=== PATIENT | female | born 1980 | race Caucasian/White ===

== ENCOUNTER 2017-02-17 20:19 | Emergency (ER) | payer SELFPAY ==
[2017-02-17 20:37] VITALS: RESP 16; TEMP 98.2
[2017-02-17 21:36] LABS: BASO % 0.6 % (0.0-2.0); EOS # 0.1 K/uL (0.0-0.7); HEMATOCRIT 40.7 % (34.0-47.0); LYMPH # 2.2 K/uL (1.0-4.3); LYMPH % 35.3 % (20.0-40.0); MEAN CELL VOLUME 82.9 fl (81.0-99.0); MEAN CORPUSCULAR HEMOGLOBIN 27.8 pg (27.0-31.0); MEAN CORPUSCULAR HGB CONC 33.6 g/dL (33.0-37.0); MEAN PLATELET VOLUME 10.4 fl (7.2-11.7); MONO # 0.5 K/uL (0.0-0.8); MONO % 7.9 % (0.0-10.0); NEUT # 3.5 K/uL (1.8-7.0); NEUT % 55.2 % (50.0-75.0); NRBC % 0.1 % (0.0-0.0); RED CELL DISTRIBUTION WIDTH 15.3 % (11.5-14.5); WHITE BLOOD COUNT 6.4 K/uL (4.8-10.8)
[2017-02-17 21:37] LABS: RBC URINE 1 /hpf (0-3); URINE BACTERIA RARE (<OCC); URINE BILIRUBIN NEGATIVE (NEGATIVE); URINE BLOOD NEGATIVE (NEGATIVE); URINE COLOR YELLOW (YELLOW); URINE GLUCOSE (UA) >=500 mg/dL (Normal); URINE KETONE TRACE mg/dL (NEGATIVE); URINE LEUKOCYTE ESTERASE NEG Leu/uL (Negative); URINE PROTEIN NEGATIVE (NEGATIVE); URINE UROBILINOGEN 0.2-1.0 mg/dL (0.2-1.0); WBC URINE 2 /hpf (0-5)
[2017-02-17 21:49] LABS: BLOOD UREA NITROGEN 17 mg/dl (7-17); CALCIUM 9.2 mg/dL (8.4-10.2); CARBON DIOXIDE 27 mmol/L (22-30); CHLORIDE 100 mmol/L (98-107); GFR AFRICAN-AMERICAN > 60; GLUCOSE,RANDOM 255 mg/dL (65-105); POTASSIUM 4.1 MMOL/L (3.6-5.0); SODIUM 141 mmol/l (132-148)
--- NOTE | 2017-02-17 22:08 | ED PDOC ---
HPI: Female Pain Time Seen by Provider: 02/17/17 20:56 Chief Complaint (Nursing): Female Genitourinary Chief Complaint (Provider): Suprapubic Abdominal Pain History Per: Patient History/Exam Limitations: no limitations Onset/Duration Of Symptoms: Days (x1 week) Current Symptoms Are (Timing): Still Present Severity: Moderate Associated Symptoms: Other (foul smelling brown vaginal discharge). denies: Fever, Chills Additional Complaint(s): Vera Zuleta is a 36 year old female, with a past medical history inclusive of NIDDM, who presents to the ED on 02/17/17 for the evaluation of moderate, suprapubic abdominal pain that she has experienced x1 week. Associated foul smelling brown vaginal discharge also reported, though patient denies fever/ chills. Patient reports that she is currently sexually active with 1 partner and has no concern for STD's. (+) IUD placement x5 years without previous issue. PMD: [facility] Past Medical History Reviewed: Historical Data, Nursing Documentation, Vital Signs Vital Signs: Last Vital Signs Temp 98.2 F 02/17/17 20:35 Pulse 83 02/17/17 20:35 Resp 16 02/17/17 20:35 BP 134/88 02/17/17 20:35 Pulse Ox 99 02/17/17 20:35 - Medical History PMH: No Chronic Diseases - Surgical History Surgical History: Appendectomy - Family History Family History: States: Unknown Family Hx - Living Arrangements Living Arrangements: With Family - Social History Current smoker - smoking cessation education provided: No Alcohol: None Drugs: Denies - Home Medications Home Medications: Ambulatory Orders Medication Instructions Recorded metFORMIN [glucOPHAGE] 850 mg PO BID 02/17/17 metroNIDAZOLE [Flagyl] 500 mg PO BID 14 Days 02/18/17 - Allergies Allergies/Adverse Reactions: Allergies Allergy/AdvReac Type Severity Reaction Status Date / Time No Known Allergies Allergy Verified 02/17/17 20:35 Review of Systems ROS Statement: Except As Marked, All Systems Reviewed And Found Negative Constitutional: Negative for: Fever, Chills Gastrointestinal: Positive for: Abdominal Pain (suprapubic) Genitourinary Female: Positive for: Vaginal Discharge (foul smelling, brown) Physical Exam - Reviewed Nursing Documentation Reviewed: Yes Vital Signs Reviewed: Yes - Physical Exam Appears: Positive for: Non-toxic, No Acute Distress Head Exam: Positive for: ATRAUMATIC, NORMOCEPHALIC Skin: Positive for: Normal Color, Warm, Dry Cardiovascular/Chest: Positive for: Regular Rate, Rhythm. Negative for: Murmur Respiratory: Positive for: Normal Breath Sounds. Negative for: Respiratory Distress Gastrointestinal/Abdominal: Positive for: Soft, Tenderness (b/l lower abdomen) Pelvic Exam: Positive for: No Cerv. Motion Tender, Discharge (brown, mucoid), Tender Adnexa (b/l), Other (Examination chaperoned by Donna Carpio RN, IUD string visualized normally coming out of cervix) Back: Positive for: Normal Inspection Neurologic/Psych: Positive for: Alert, Oriented - Laboratory Results Result Diagrams: 02/17/17 21:25 02/17/17 21:25 - ECG O2 Sat by Pulse Oximetry: 99 (RA) Pulse Ox Interpretation: Normal Medical Decision Making Medical Decision Makin:56 Initial Impression: bacterial vaginosis vs ovarian torsion (unlikely) Initial Plan: * Pelvis/Transvaginal US * Labs * Urinalysis * Urine Culture * Chlamydia/GC RNA * Genital Culture * Motrin 600mg PO * Reevaluation Scribe Attestation: Documented by Janette Curtis, acting as a scribe for Wale Arguello MD. Provider Scribe Attestation: All medical record entries made by the Scribe were at my direction and personally dictated by me. I have reviewed the chart and agree that the record accurately reflects my personal performance of the history, physical exam, medical decision making, and the department course for this patient. I have also personally directed, reviewed, and agree with the discharge instructions and disposition. Disposition - Clinical Impression Clinical Impression: Bacterial vaginosis - Disposition [facility] Disposition Time: 01:00 Condition: STABLE Prescriptions: metroNIDAZOLE [Flagyl] 500 mg PO BID 14 Days Instructions: Bacterial Vaginosis (ED)
--- NOTE | 2017-02-18 00:20 | US ---
EXAM: US Pelvis Complete, Transabdominal. CLINICAL HISTORY: 36 years old, female; Pain; Pelvic pain; Additional info: Lower abd pain, iud, vd TECHNIQUE: Real-time transabdominal pelvic ultrasound (complete) with image documentation. EXAM DATE/TIME: 02/17/2017 9:16 PM COMPARISON: There are no prior studies for comparison. FINDINGS: Uterus: Uterus measures approximately 9 x 4.6 x 5.4 cm. There is an intrauterine device in the midportion of the uterus. Endometrium is not well visualized. Endometrium measures approximately 4 mm in width.. Right ovary: Right ovary measures approximately 3.6 x 2 x 1.7 cm. There are multiple small follicles. Flow Left ovary: Left ovary measures approximately 2.7 x 1.4 x 1.6 cm.There is expected blood flow on Doppler imaging Bladder: Bladder is incompletely distended Fluid: There is no free fluid. IMPRESSION: Normal pelvic ultrasound with IUD in place
[2017-02-18 01:41] VITALS: BP 116/62; PULSE 72
[2017-02-18 15:54] VITALS: O2SAT 99
== END 2017-02-18 01:41 | disposition home or self-care (01) ==
LOC: H.ER 20:19
DX: N76.0 Acute vaginitis (principal); E11.9 Type 2 diabetes mellitus without complications; Z79.84 Long term (current) use of oral hypoglycemic drugs

== ENCOUNTER 2018-09-08 01:35 | Emergency (ER) | payer SELFPAY ==
[2018-09-08 01:35] VITALS: BMI 22.6
[2018-09-08 02:38] VITALS: BP 103/67; PULSE 65; RESP 14; TEMP 98.1; O2SAT 99
--- NOTE | 2018-09-08 03:38 | ED PDOC ---
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 She describes the pain as a burning sensation and rates it a 5/10. Patient states it sometimes radiates down to umbilicus. She took Advil at 23:30 with minimal relief. She denies any associated with fever, chills, nausea, vomit, diarrhea, urinary symptoms, cough, congestion, shortness of breath, flank pain, vaginal bleeding or discharge, history of UTI or kidney stones. No further medical complaints. Of note, patient states she forgot to take her Metformin dose yesterday. LMP 08/07/18. PMD: [facility]. Past Medical History Reviewed: Historical Data, Nursing Documentation, Vital Signs Vital Signs: Last Vital Signs Temp 98.1 F 09/08/18 02:36 Pulse 65 09/08/18 02:36 Resp 14 09/08/18 02:36 BP 103/67 09/08/18 02:36 Pulse Ox 99 09/08/18 02:36 - Medical History PMH: Asthma, Diabetes (NIDDM) Denies: HIV, Chronic Kidney Disease - Surgical History Surgical History: Appendectomy - Family History Family History: States: Unknown Family Hx, Diabetes - Social History Current smoker - smoking cessation education provided: No Alcohol: None Drugs: Denies - Immunization History Hx Influenza Vaccination: No - Home Medications Home Medications: Ambulatory Orders Medication Instructions Recorded Ibuprofen [Motrin] 600 mg PO Q6 #20 tab 11/11/17 MetFORMIN [glucoPHAGE] 800 mg PO BID 11/11/17 Ciprofloxacin [Cipro] 500 mg PO BID #6 tab 11/12/17 Metronidazole [Flagyl] 500 mg PO BID #14 tab 11/12/17 Bacitracin OINT 1 applic TOP BID PRN #1 tube 07/11/18 Famotidine [Pepcid] 40 mg PO DAILY #10 tablet 09/08/18 Mag Hydrox/Aluminum Hyd/Simeth 15 ml PO QID PRN #300 ml 09/08/18 [Maalox Advanced Suspension] - Allergies Allergies/Adverse Reactions: Allergies Allergy/AdvReac Type Severity Reaction Status Date / Time No Known Allergies Allergy Verified 09/08/18 02:35 Review of Systems ROS Statement: Except As Marked, All Systems Reviewed And Found Negative Constitutional: Negative for: Fever, Chills ENT: Negative for: Nose Congestion Respiratory: Negative for: Cough, Shortness of Breath Gastrointestinal: Positive for: Abdominal Pain (epigastric burning). Negative for: Nausea, Vomiting, Diarrhea Genitourinary Female: Negative for: Dysuria, Frequency, Vaginal Discharge, Vaginal Bleeding Musculoskeletal: Negative for: Back Pain (flank pain) Physical Exam - Reviewed Nursing Documentation Reviewed: Yes Vital Signs Reviewed: Yes - Physical Exam Comments: GENERAL APPEARANCE: Patient is awake, alert, oriented x 3, in no acute distress. resting comfortably SKIN: Warm, dry; (-) cyanosis. EYES: (-) conjunctival pallor, (-) scleral icterus. ENMT: Mucous membranes moist. NECK: (-) tenderness, (-) stiffness, (-) lymphadenopathy. CHEST AND RESPIRATORY: (-) rales, (-) rhonchi, (-) wheezes; breath sounds equal bilaterally. HEART AND CARDIOVASCULAR: (-) irregularity; (-) murmur, (-) gallop. ABDOMEN AND GI: (-) distention. Bowel sounds active; [+] minimal epigastric tenderness. (-) guarding, (-) rebound, (-) palpable masses, (-) CVA tenderness. EXTREMITIES: (-) deformity, (-) edema, (+) distal pulses. NEURO AND PSYCH: Mental status as above; (-) focal findings. - Laboratory Results Result Diagrams: 09/08/18 03:55 09/08/18 03:55 Urine POC: Negative Urine dip results: Positive for: Ketones (40), Glucose (>1000). Negative for: Leukocyte Esterase, Blood, Nitrate, Bilirubin, Protein - ECG O2 Sat by Pulse Oximetry: 99 (RA) Pulse Ox Interpretation: Normal Medical Decision Making Medical Decision Making: Time: 03:22 Initial Impression: abdominal pain Initial Plan: --CMP --Lipase --CBC w/ differential --HumunLIN R 4 units --Maalox Plus 30 ml PO --Sodium Chloride 1,000 ml IV 999 mls/hr --Protonix Inj 40 mg IVP --Urinalysis --Reevaluation 0335 Accucheck: 225 Udip reviewed. Upreg negative. 0430 Labs reviewed. CBC unremarkable. CMP significant for hyperglycemia. 0505 Repeat Accucheck: 168 0515 On re-evaluation, patient reports improvement of symptoms. On exam, patient remains AAOx3, in no acute distress. Lungs clear to auscultation, cardiac RRR, abdomen soft, non-tender, repeat neuro exam shows no focal findings. VSS, stable for discharge. Lab/Diagnostic results d/w the patient in great detail. Diagnosis of abdominal pain, hyperglycemia d/w the patient. Based on history, exam and diagnostic results, plan will be for outpatient follow up. Patient instructed to follow-up with pmd / referral provided / the clinic in 1- 2 days without fail. Advised to take medication as prescribed. Return to the emergency room at any time for any new or worsening symptoms. Patient states she fully agrees with and understands discharge instructions. States that she agrees with the plan and disposition. Verbalized and repeated discharge instructions and plan. I have given the patient opportunity to ask any additional questions. Scribe Attestation: Documented by Zeb Little, acting as a scribe for Catina Contreras PA-C. Provider Scribe Attestation: All medical record entries made by the Scribe were at my direction and person ally dictated by me. I have reviewed the chart and agree that the record accurately reflects my personal performance of the history, physical exam, medical decision making, and the department course for this patient. I have also personally directed, reviewed, and agree with the discharge instructions and disposition. Disposition - Clinical Impression Clinical Impression: Hyperglycemia, Abdominal pain in female - Patient ED Disposition Is Patient to be Admitted: No Counseled Patient/Family Regarding: Studies Performed, Diagnosis, Need For Followup, Rx Given - Disposition Referrals: [facility] [Outside] Disposition: Routine/Home Disposition Time: 05:15 Condition: STABLE Additional Instructions: La atencin mdica de emergencia que recibi hoy se dirigi hacia los sntomas agudos de presentacin. Si le recetaron algn medicamento, llnelo y adminstrelo segn las indicaciones. Los sntomas pueden tardar varios cameron en resolverse. Regrese al Departamento de Emergencias en cualquier momento si los sntomas empeoran, no mejoran o si surgen otros problemas. Comunquese con dee mdico dentro de 2 cameron para angelina nueva evaluacin y eric un seguimiento o llame a dejan de los mdicos / clnicas a los que powers sido referido y que figuran en el formulario de Informacin de visita al paciente que se incluye en dee paquete de yane. Lleve todos los documentos que le entregaron al momento del yane junto con cualquier medicamento a dee visita de seguimiento. Nuestro tratamiento no puede reemplazar la atencin mdica continua por parte de un proveedor de atencin primaria (PCP) fuera del departamento de emergencias. Prescriptions: Famotidine [Pepcid] 40 mg PO DAILY #10 tablet Mag Hydrox/Aluminum Hyd/Simeth [Maalox Advanced Suspension] 15 ml PO QID PRN #300 ml PRN Reason: Dyspepsia Instructions: Hyperglycemia, Adult, Acute Abdomen (Belly Pain), Adult (DC), The ABCs of Diabetes, Diabetes and Diet Forms: [employer] (Sinhala) Print Language: ARGENTINE - POA Present On Arrival: Poor Glycemic Control Results - Lab Results Lab Results: 09/08/18 09/08/18 09/08/18 03:55 03:55 03:55 WBC 6.8 RBC 4.92 Hgb 14.0 Hct 41.1 MCV 83.5 MCH 28.4 MCHC 34.0 RDW 15.6 H Plt Count 184 MPV 9.9 Neut % (Auto) 53.5 Lymph % (Auto) 35.4 [place] % (Auto) 9.4 Eos % (Auto) 1.1 Baso % (Auto) 0.6 Neut # (Auto) 3.6 Lymph # (Auto) 2.4 [place] # (Auto) 0.6 Eos # (Auto) 0.1 Baso # (Auto) 0.0 Sodium 137 Potassium 4.2 Chloride 103 Carbon Dioxide 27 Anion Gap 11 BUN 19 H Creatinine 0.5 L Est GFR ( Amer) > 60 Est GFR (Non-Af Amer) > 60 POC Glucose (mg/dL) Random Glucose 241 H Calcium 9.2 Total Bilirubin 0.2 AST 28 ALT 33 Alkaline Phosphatase 134 H Total Protein 7.9 Albumin 4.3 Globulin 3.6 Albumin/Globulin Ratio 1.2 Lipase 179 Urine Color Straw Urine Clarity Slighty-cloudy Urine pH 6.0 Ur Specific [place] 1.024 Urine Protein Negative Urine Glucose (UA) >=500 Urine Ketones 20 Urine Blood Negative Urine Nitrate Negative Urine Bilirubin Negative Urine Urobilinogen 0.2-1.0 Ur Leukocyte Esterase Neg Urine RBC (Auto) 2 Urine Microscopic WBC 5 Ur Squamous Epith Cells 2 Urine Bacteria Rare 09/08/18 03:36 WBC RBC Hgb Hct MCV MCH MCHC RDW Plt Count MPV Neut % (Auto) Lymph % (Auto) [place] % (Auto) Eos % (Auto) Baso % (Auto) Neut # (Auto) Lymph # (Auto) [place] # (Auto) Eos # (Auto) Baso # (Auto) Sodium Potassium Chloride Carbon Dioxide Anion Gap BUN Creatinine Est GFR ( Amer) Est GFR (Non-Af Amer) POC Glucose (mg/dL) 225 H Random Glucose Calcium Total Bilirubin AST ALT Alkaline Phosphatase Total Protein Albumin Globulin Albumin/Globulin Ratio Lipase Urine Color Urine Clarity Urine pH Ur Specific [place] Urine Protein Urine Glucose (UA) Urine Ketones Urine Blood Urine Nitrate Urine Bilirubin Urine Urobilinogen Ur Leukocyte Esterase Urine RBC (Auto) Urine Microscopic WBC Ur Squamous Epith Cells Urine Bacteria
[2018-09-08] MEDS ORDERED: Sodium Chloride 0.9% 1,000 ML IV STA (03:39)
[2018-09-08] MEDS ORDERED: Alum-Mag Hydrox-Simethicone Susp (30 mL) PO STA (03:39)
[2018-09-08] MEDS ORDERED: Insulin Regular 100 units/ml IVP STA (03:40)
[2018-09-08] MEDS ORDERED: Alum-Mag Hydrox-Simethicone Susp (30 mL) ONE (03:49)
[2018-09-08] MEDS ORDERED: Insulin Regular 100 units/ml ONE (03:49)
[2018-09-08 04:14] LABS: BASO % 0.6 % (0.0-2.0); EOS # 0.1 K/uL (0.0-0.7); EOS % 1.1 % (0.0-4.0); LYMPH # 2.4 K/uL (1.0-4.3); LYMPH % 35.4 % (20.0-40.0); MEAN CELL VOLUME 83.5 fl (81.0-99.0); MEAN CORPUSCULAR HEMOGLOBIN 28.4 pg (27.0-31.0); MEAN PLATELET VOLUME 9.9 fl (7.2-11.7); MONO # 0.6 K/uL (0.0-0.8); MONO % 9.4 % (0.0-10.0); NEUT # 3.6 K/uL (1.8-7.0); NEUT % 53.5 % (50.0-75.0); NRBC % 0.4 % (0.0-0.0); RBC 4.92 Mil/uL (3.80-5.20); RED CELL DISTRIBUTION WIDTH 15.6 % (11.5-14.5); WHITE BLOOD COUNT 6.8 K/uL (4.8-10.8)
[2018-09-08 04:21] LABS: SQUAMOUS EPITHIAL 2 /hpf (0-5); URINE BACTERIA RARE (<OCC); URINE BILIRUBIN NEGATIVE (NEGATIVE); URINE BLOOD NEGATIVE (NEGATIVE); URINE CLARITY SLIGHTY-CLOUDY (Clear); URINE COLOR STRAW (YELLOW); URINE GLUCOSE (UA) >=500 mg/dL (Normal); URINE LEUKOCYTE ESTERASE NEG Leu/uL (Negative); URINE PROTEIN NEGATIVE (NEGATIVE); URINE UROBILINOGEN 0.2-1.0 mg/dL (0.2-1.0)
[2018-09-08 04:23] LABS: ALB/GLOB RATIO 1.2 (1.0-2.1); ALBUMIN 4.3 g/dL (3.5-5.0); ALT/SGPT 33 U/L (9-52); AST/SGOT 28 U/L (14-36); BLOOD UREA NITROGEN 19 mg/dl (7-17); CALCIUM 9.2 mg/dL (8.4-10.2); GFR NON-AFRICAN AMERICAN > 60; LIPASE 179 U/L (23-300)
== END 2018-09-08 05:35 | disposition home or self-care (01) ==
LOC: H.ER 01:35 → MERGE 01:35 → H.ER 05:35
DX: E11.65 Type 2 diabetes mellitus with hyperglycemia (principal); Z79.84 Long term (current) use of oral hypoglycemic drugs; R10.9 Unspecified abdominal pain
CPT/HCPCS: 80053; 81003; 81025; 82948; 83690; 85025; 96361; 96374; 96375; 99283; C9113; J7030

== ENCOUNTER 2019-01-06 10:51 | Emergency (ER) | payer SELFPAY ==
[2019-01-06 10:52] VITALS: BMI 22.6
--- NOTE | 2019-01-06 12:24 | ED PDOC ---
HPI: Influenza Time Seen by Provider: 01/06/19 11:24 Chief Complaint: Flu-like Symptoms Chief Complaint (Provider): body aches, chills History Per: Patient Additional complaint(s):: 38 y/o F with hx of DM who presents with chills and body aches x 2 days with nausea and abdominal pain x 1 week. Pt states that she developed LUQ abdominal pain with radiation to Left flank approximately 1 week ago and then develop chills and body aches as well subjective fever last night for which she took Ibuprofen last night. She has not taken anything today. She has also been having some chest pressure, especially with deep inspiration that has been constant since yesterday evening around 7pm. + nausea and non-productive cough x several days, no vomiting or diarrhea. Denies dysuria, frequency, vaginal discharge. Past Medical History Reviewed: Historical Data, Nursing Documentation, Vital Signs Vital Signs: Last Vital Signs Temp 103.3 F H 01/06/19 12:16 Pulse 108 H 01/06/19 10:58 Resp 18 01/06/19 10:58 BP 130/82 01/06/19 10:58 Pulse Ox 100 01/06/19 10:58 - Medical History PMH: Asthma, Diabetes (NIDDM) Denies: HIV, Chronic Kidney Disease - Surgical History Surgical History: Appendectomy - Family History Family History: States: Unknown Family Hx, Diabetes - Immunization History Hx Influenza Vaccination: No - Home Medications Home Medications: Ambulatory Orders Medication Instructions Recorded metFORMIN [glucOPHAGE] 850 mg PO BID 02/17/17 metroNIDAZOLE [Flagyl] 500 mg PO BID 14 Days tab 02/18/17 Ibuprofen [Motrin] 600 mg PO Q6 #20 tab 11/11/17 MetFORMIN [glucoPHAGE] 800 mg PO BID 11/11/17 Ciprofloxacin [Cipro] 500 mg PO BID #6 tab 11/12/17 Metronidazole [Flagyl] 500 mg PO BID #14 tab 11/12/17 Bacitracin OINT 1 applic TOP BID PRN #1 tube 07/11/18 Famotidine [Pepcid] 40 mg PO DAILY #10 tablet 09/08/18 Mag Hydrox/Aluminum Hyd/Simeth 15 ml PO QID PRN #300 ml 09/08/18 [Maalox Advanced Suspension] Cephalexin [Keflex] 500 mg PO QID 12 Days cap 01/06/19 Ibuprofen [Motrin Tab] 600 mg PO Q6 PRN 7 Days tab 01/06/19 - Allergies Allergies/Adverse Reactions: Allergies Allergy/AdvReac Type Severity Reaction Status Date / Time No Known Allergies Allergy Verified 09/11/18 07:59 Review of Systems Constitutional: Positive for: Fever, Chills, Sweats, Malaise Cardiovascular: Positive for: Chest Pain. Negative for: Palpitations Respiratory: Positive for: Cough Physical Exam - Reviewed Nursing Documentation Reviewed: Yes Vital Signs Reviewed: Yes - Physical Exam Appears: Positive for: Uncomfortable Head Exam: Positive for: ATRAUMATIC Neck: Positive for: Normal Cardiovascular/Chest: Positive for: Tachycardia Respiratory: Positive for: Normal Breath Sounds Gastrointestinal/Abdominal: Positive for: Tenderness (LUQ and LLQ tenderness on palpation), Guarding (+). Negative for: Mass, Distended, Rebound Back: Negative for: L CVA Tenderness, R CVA Tenderness Lymphatic: Positive for: Normal Exam Neurologic/Psych: Positive for: Alert, Oriented Medical Decision Making Medical Decision Making: CBC, CMP, lipase U/A, Urine , Urine culture Zofran 4mg IV x 1 EKG CXR PA and lateral Urine dip shows: Large Nitrate and LE as well as blood. Urine preg: negative EKG: sinus, HR 104, no ischemic change. Repeat temp: T: 103.3F VBG lactate, blood cultures ordered x 2 NS 1L IV x 1 Tylenol 975mg PO x 1 CT abd/pelvis w/o contrast CT abd/pelvis: FINDINGS: LOWER THORAX: Small calcified granuloma noted right middle lobe. LIVER: Unremarkable. No gross lesion or ductal dilatation. GALLBLADDER AND BILE DUCTS: Sludge is questioned within the gallbladder lumen without defined cholelithiasis appreciated at this time. Gallbladder is mildly distended and otherwise unremarkable appearing. PANCREAS: Unremarkable. No gross lesion or ductal dilatation. SPLEEN: Unremarkable. ADRENALS: Unremarkable. No mass. KIDNEYS AND URETERS: No radiodense urolithiasis, perinephric fluid collection or obstructive uropathy is appreciate bilaterally. The bilateral ureters appear normal caliber overall. No definite perinephric reaction or fluid collection appreciated bilaterally. VASCULATURE: Unremarkable. No aortic aneurysm. No aortic atherosclerotic calcification or mural plaque present. BOWEL: Stomach is collapsed not well evaluated. Surgical clips are seen at the cecal base an other areas of the right lower quadrant suggesting prior appendectomy. Clinically correlate further. No bowel obstruction appreciable. Evaluation of the gastrointestinal tract is limited due to the lack of oral contrast administration. Moderate amount retained fecal material scattered throughout the proximal and mid large-bowel and mildly at the distal large bowel. APPENDIX: Apparently surgically absent. Clinically correlate. PERITONEUM: Unremarkable. No free fluid. No free air. LYMPH NODES: Unremarkable. No enlarged lymph nodes. BLADDER: Distended but thin and smooth walled. No radiodense urolithiasis the lumen. REPRODUCTIVE: Unremarkable. BONES: No acute fracture. OTHER FINDINGS: None. IMPRESSION: 1. No radiodense urolithiasis, perinephric fluid collection or obstructive uropathy is appreciate bilaterally. The bilateral ureters appear normal caliber overall. No significant perinephric reaction bilaterally. Follow-up contrast CT may be helpful if further clinical concern remains for pyelonephritis. 2. Prior appendectomy suggested. Clinically correlate further. CXR: FINDINGS: LINES AND TUBES: None. LUNG AND PLEURA: The lungs are well inflated and clear. No pleural effusion or pneumothorax. HEART AND MEDIASTINUM: The heart is not enlarged. No aortic atherosclerotic calcifications present. The hilar and mediastinal contours are within normal limits. SKELETAL STRUCTURES: The bony structures are within normal limits for the patient's age. VISUALIZED UPPER ABDOMEN: Normal. OTHER FINDINGS: None. IMPRESSION: No active pulmonary disease. 16:30: pt re-evaluated, states that she is feeling somewhat better. Pt informed of CT scan results and diagnosis of Pyelonephritis. Return instructions given. Stable for D/c home. 3. Questionable sludge in gallbladder. No radiodense cholelithiasis or other significant gallbladder findings. - Laboratory Results Result Diagrams: 01/06/19 12:10 01/06/19 12:10 - ECG O2 Sat by Pulse Oximetry: 100 Disposition - Clinical Impression Clinical Impression: Pyelonephritis - Patient ED Disposition Is Patient to be Admitted: No Counseled Patient/Family Regarding: Studies Performed, Diagnosis, Need For Followup, Rx Given - Disposition Referrals: [facility] [Outside] Disposition: Routine/Home Disposition Time: 17:10 Condition: STABLE Additional Instructions: Return to ER if your fever persists despite being on antibiotics for 48hrs or you feel too weak to take care of yourself. Take full course of antibiotics as presribed. Prescriptions: Cephalexin [Keflex] 500 mg PO QID 12 Days cap Ibuprofen [Motrin Tab] 600 mg PO Q6 PRN 7 Days tab PRN Reason: Fever >100.4 F Instructions: Kidney Infection (DC) Forms: [employer] (German), [facility] School/Work Excuse Print Language: SPANISH
[2019-01-06 12:26] LABS: BASO % 0.2 % (0.0-2.0); HEMOGLOBIN 13.8 g/dL (12.0-16.0); LYMPH # 0.3 K/uL (1.0-4.3); LYMPH % 3.9 % (20.0-40.0); MEAN CORPUSCULAR HEMOGLOBIN 30.4 pg (27.0-31.0); MEAN CORPUSCULAR HGB CONC 34.9 g/dL (33.0-37.0); MEAN PLATELET VOLUME 9.7 fl (7.2-11.7); MONO # 0.4 K/uL (0.0-0.8); MONO % 5.4 % (0.0-10.0); NEUT # 6.2 K/uL (1.8-7.0); NEUT % 90.5 % (50.0-75.0); NRBC % 0.2 % (0.0-0.0); PLATELET COUNT 144 K/uL (130-400); RBC 4.54 Mil/uL (3.80-5.20); RED CELL DISTRIBUTION WIDTH 14.4 % (11.5-14.5); WHITE BLOOD COUNT 6.9 K/uL (4.8-10.8)
[2019-01-06] MEDS ORDERED: Sodium Chloride 0.9% 1,000 ML IV SCH (12:30)
[2019-01-06 12:33] LABS: SQUAMOUS EPITHIAL 25 /hpf (0-5); URINE AMORPHOUS SEDIMENT RARE /ul (<OCC); URINE BACTERIA FEW (<OCC); URINE BILIRUBIN NEGATIVE (NEGATIVE); URINE BLOOD LARGE (NEGATIVE); URINE CLARITY CLOUDY (Clear); URINE COLOR RED (YELLOW); URINE GLUCOSE (UA) >=500 mg/dL (NEGATIVE); URINE LEUKOCYTE ESTERASE TRACE Leu/uL (Negative); URINE PROTEIN 100 mg/dL (NEGATIVE); URINE UROBILINOGEN 0.2-1.0 mg/dL (0.2-1.0)
[2019-01-06 12:38] LABS: ALB/GLOB RATIO 1.2 (1.0-2.1); ALBUMIN 4.2 g/dL (3.5-5.0); ALT/SGPT 87 U/L (9-52); AST/SGOT 84 U/L (14-36); BLOOD UREA NITROGEN 9 mg/dl (7-17); CALCIUM 8.9 mg/dL (8.4-10.2); GFR NON-AFRICAN AMERICAN > 60; LIPASE 64 U/L (23-300)
[2019-01-06 12:50] LABS: VENOUS BLOOD GAS BASE EXCESS 2.5 mmol/L (0.0-2.0); VENOUS BLOOD GAS PCO2 45 mmHg (40-60); VENOUS BLOOD GAS PO2 27 mm/Hg (30-55)
[2019-01-06 13:54] LABS: BANDS 1 % (0-2); BASOPHIL 1 % (0-2); LYMPHOCYTE 5 % (20-50); METAMYELOCYTE 1 % (0-0); MONOCYTE 3 % (0-10); NEUTROPHIL 89 % (42-75); PLATELET ESTIMATE NORMAL (NORMAL); TOTAL CELLS COUNTED 100
[2019-01-06 13:55] LABS: PLATELET CLUMPS PRESENT
--- NOTE | 2019-01-06 13:58 | RAD ---
Date of service: 01/06/2019 HISTORY: Cough and shortness of breath COMPARISON: 06/07/2017. TECHNIQUE: Chest PA and lateral FINDINGS: LINES AND TUBES: None. LUNG AND PLEURA: The lungs are well inflated and clear. No pleural effusion or pneumothorax. HEART AND MEDIASTINUM: The heart is not enlarged. No aortic atherosclerotic calcifications present. The hilar and mediastinal contours are within normal limits. SKELETAL STRUCTURES: The bony structures are within normal limits for the patient's age. VISUALIZED UPPER ABDOMEN: Normal. OTHER FINDINGS: None. IMPRESSION: No active pulmonary disease.
--- NOTE | 2019-01-06 15:07 | CT ---
Date of service: 01/06/2019 PROCEDURE: CT Abdomen and Pelvis without intravenous contrast HISTORY: R/o pyelonephritis COMPARISON: Contrast abdomen and pelvis CT 11/12/2017. TECHNIQUE: Helical CT of the abdomen and pelvis was performed without oral or intravenous contrast as per referring physician request. Coronal and sagittal reformats were generated.. Contrast dose: None Radiation dose: Total exam DLP = 398.13 mGy-cm. This CT exam was performed using one or more of the following dose reduction techniques: Automated exposure control, adjustment of the mA and/or kV according to patient size, and/or use of iterative reconstruction technique. FINDINGS: LOWER THORAX: Small calcified granuloma noted right middle lobe. LIVER: Unremarkable. No gross lesion or ductal dilatation. GALLBLADDER AND BILE DUCTS: Sludge is questioned within the gallbladder lumen without defined cholelithiasis appreciated at this time. Gallbladder is mildly distended and otherwise unremarkable appearing. PANCREAS: Unremarkable. No gross lesion or ductal dilatation. SPLEEN: Unremarkable. ADRENALS: Unremarkable. No mass. KIDNEYS AND URETERS: No radiodense urolithiasis, perinephric fluid collection or obstructive uropathy is appreciate bilaterally. The bilateral ureters appear normal caliber overall. No definite perinephric reaction or fluid collection appreciated bilaterally. VASCULATURE: Unremarkable. No aortic aneurysm. No aortic atherosclerotic calcification or mural plaque present. BOWEL: Stomach is collapsed not well evaluated. Surgical clips are seen at the cecal base an other areas of the right lower quadrant suggesting prior appendectomy. Clinically correlate further. No bowel obstruction appreciable. Evaluation of the gastrointestinal tract is limited due to the lack of oral contrast administration. Moderate amount retained fecal material scattered throughout the proximal and mid large-bowel and mildly at the distal large bowel. APPENDIX: Apparently surgically absent. Clinically correlate. PERITONEUM: Unremarkable. No free fluid. No free air. LYMPH NODES: Unremarkable. No enlarged lymph nodes. BLADDER: Distended but thin and smooth walled. No radiodense urolithiasis the lumen. REPRODUCTIVE: Unremarkable. BONES: No acute fracture. OTHER FINDINGS: None. IMPRESSION: 1. No radiodense urolithiasis, perinephric fluid collection or obstructive uropathy is appreciate bilaterally. The bilateral ureters appear normal caliber overall. No significant perinephric reaction bilaterally. Follow-up contrast CT may be helpful if further clinical concern remains for pyelonephritis. 2. Prior appendectomy suggested. Clinically correlate further. 3. Questionable sludge in gallbladder. No radiodense cholelithiasis or other significant gallbladder findings.
[2019-01-06] MEDS ORDERED: cefTRIAXone (Rocephin) 1 gm Inj ONE (15:25)
[2019-01-06 18:01] VITALS: BP 113/63; PULSE 100; RESP 18; TEMP 99.8; O2SAT 99
--- NOTE | 2019-01-06 19:09 | CARD ---
APPROVED REPORT Date of service: 01/06/2019 EKG Measurement Heart [id number] <Conclusion> Sinus tachycardia Otherwise normal ECG
== END 2019-01-06 17:34 | disposition home or self-care (01) ==
LOC: H.ER 10:51
DX: N12 Tubulo-interstitial nephritis, not specified as acute or chronic (principal); R05 Cough; R07.89 Other chest pain; E11.9 Type 2 diabetes mellitus without complications; Z79.84 Long term (current) use of oral hypoglycemic drugs; J45.909 Unspecified asthma, uncomplicated
CPT/HCPCS: 71046; 74176; 80053; 81003; 82803; 83690; 85025; 87040; 87804; 93005; 96361; 96365; 96375; 99285; J0696; J2405; J7030

== ENCOUNTER 2019-03-29 17:43 | Emergency (ER) | payer OTHER, SELFPAY ==
[2019-03-29 17:44] VITALS: BMI 22.6
--- NOTE | 2019-03-29 19:22 | ED PDOC ---
HPI: Abdomen Time Seen by Provider: 03/29/19 18:27 Chief Complaint (Nursing): Abdominal Pain Chief Complaint (Provider): Abdominal pain History Per: Patient History/Exam Limitations: no limitations Onset/Duration Of Symptoms: Other (x1 week) Current Symptoms Are (Timing): Still Present Associated Symptoms: Nausea. denies: Vomiting, Diarrhea Additional Complaint(s): 38 y/o female presents to the ER for abdominal pain ongoing for about a week associated with abdominal distension and 2 weeks of nausea. Denies outright vomiting or diarrhea. Patient reports on Sunday, she noticed x1 episode of yellowish vaginal discharge that was foul smelling which resolved. Denies dysuria, hematuria, frequency, constipation, fever, or chills. She reports having decreased appetite. Last period was March 04. PMD: clinic Past Medical History Reviewed: Historical Data, Nursing Documentation, Vital Signs Vital Signs: Last Vital Signs Temp 98.5 F 03/29/19 18:13 Pulse 70 03/29/19 18:13 Resp 16 03/29/19 18:13 BP 110/65 03/29/19 18:13 Pulse Ox 100 03/29/19 18:13 Primary Care Provider: Edu Varner - Medical History PMH: Asthma, Diabetes (NIDDM), Pancreatitis Denies: HIV, Chronic Kidney Disease - Surgical History Surgical History: Appendectomy, - Family History Family History: States: Diabetes - Social History Current smoker - smoking cessation education provided: No Alcohol: None Drugs: Denies - Immunization History Hx Influenza Vaccination: No - Home Medications Home Medications: Ambulatory Orders Medication Instructions Recorded metFORMIN [glucOPHAGE] 850 mg PO BID 02/17/17 metroNIDAZOLE [Flagyl] 500 mg PO BID 14 Days tab 02/18/17 Ibuprofen [Motrin] 600 mg PO Q6 #20 tab 11/11/17 MetFORMIN [glucoPHAGE] 800 mg PO BID 11/11/17 Ciprofloxacin [Cipro] 500 mg PO BID #6 tab 11/12/17 Metronidazole [Flagyl] 500 mg PO BID #14 tab 11/12/17 Bacitracin OINT 1 applic TOP BID PRN #1 tube 07/11/18 Famotidine [Pepcid] 40 mg PO DAILY #10 tablet 09/08/18 Mag Hydrox/Aluminum Hyd/Simeth 15 ml PO QID PRN #300 ml 09/08/18 [Maalox Advanced Suspension] Cephalexin [Keflex] 500 mg PO QID 12 Days cap 01/06/19 Ibuprofen [Motrin Tab] 600 mg PO Q6 PRN 7 Days tab 01/06/19 Esomeprazole Magnesium [Nexium] 20 mg PO QAM #14 ecc 03/30/19 - Allergies Allergies/Adverse Reactions: Allergies Allergy/AdvReac Type Severity Reaction Status Date / Time No Known Allergies Allergy Verified 03/29/19 18:13 Review of Systems ROS Statement: Except As Marked, All Systems Reviewed And Found Negative (as per HPI) Constitutional: Negative for: Fever, Chills Gastrointestinal: Positive for: Nausea, Abdominal Pain (associated with abdominal distension). Negative for: Vomiting, Diarrhea, Constipation Genitourinary Female: Positive for: Vaginal Discharge. Negative for: Dysuria, Frequency, Hematuria Physical Exam - Reviewed Nursing Documentation Reviewed: Yes Vital Signs Reviewed: Yes - Physical Exam Appears: Positive for: No Acute Distress Head Exam: Positive for: ATRAUMATIC, NORMOCEPHALIC Skin: Positive for: Warm, Dry Eye Exam: Positive for: EOMI, PERRL ENT: Negative for: Pharyngeal Erythema, Tonsillar Exudate Neck: Positive for: Painless ROM, Supple Cardiovascular/Chest: Positive for: Regular Rate, Rhythm. Negative for: Murmur Respiratory: Positive for: Normal Breath Sounds. Negative for: Respiratory Distress Gastrointestinal/Abdominal: Positive for: Bowel Sounds (hypoactive), Soft, Tenderness (RUQ and epigastric), Distended, Other ((+) Barrera's sign). Negative for: Mass, Guarding, Rebound Back: Positive for: Normal Inspection. Negative for: Muscle Spasm Extremity: Positive for: Normal ROM. Negative for: Deformity Lymphatic: Negative for: Adenopathy Neurological/Psych: Positive for: Awake, Alert. Negative for: Motor/Sensory Deficits - Laboratory Results Result Diagrams: 03/29/19 20:10 03/29/19 20:10 - ECG O2 Sat by Pulse Oximetry: 100 (RA) Pulse Ox Interpretation: Normal Medical Decision Making Medical Decision Making: Initial Impression: Abdominal pain Differential includes gall bladder disease, , gastritis, and pancreatitis. Initial Plan: --ED urine --ED urine dipstick ------ Scribe Attestation: Documented by Loi Brady acting as a scribe for Ava Lee MD. Provider Scribe Attestation: All medical record entries made by the Scribe were at my direction and personally dictated by me. I have reviewed the chart and agree that the record accurately reflects my personal performance of the history, physical exam, medical decision making, and the department course for this patient. I have also personally directed, reviewed, and agree with the discharge instructions and disposition. Disposition - Clinical Impression Clinical Impression: Gastritis, Abdominal pain - Disposition Disposition: Transfer of Care Disposition Time: 23:00 Condition: STABLE Prescriptions: Esomeprazole Magnesium [Nexium] 20 mg PO QAM #14 ecc Handoff Comments: Endorsed to Dr Motta pending US, reevaluation and final ER disposition
[2019-03-29] MEDS ORDERED: Sodium Chloride 0.9% 1,000 ML IV STA (19:48)
[2019-03-29 20:17] LABS: VENOUS BLOOD GAS BASE EXCESS 0.5 mmol/L (0.0-2.0); VENOUS BLOOD GAS PCO2 44 mmHg (40-60); VENOUS BLOOD GAS PO2 33 mm/Hg (30-55); VENOUS BLOOD PH 7.38 (7.32-7.43)
[2019-03-29 20:18] LABS: PROTHROMBIN TIME 10.9 Seconds (9.8-13.1)
[2019-03-29 20:19] LABS: BASO % 0.6 % (0.0-2.0); EOS % 0.8 % (0.0-4.0); HEMOGLOBIN 14.5 g/dL (12.0-16.0); LYMPH # 1.7 K/uL (1.0-4.3); LYMPH % 30.6 % (20.0-40.0); MEAN CELL VOLUME 88.3 fl (81.0-99.0); MEAN CORPUSCULAR HEMOGLOBIN 30.1 pg (27.0-31.0); MEAN CORPUSCULAR HGB CONC 34.1 g/dL (33.0-37.0); MEAN PLATELET VOLUME 10.8 fl (7.2-11.7); MONO # 0.6 K/uL (0.0-0.8); MONO % 10.8 % (0.0-10.0); NEUT # 3.1 K/uL (1.8-7.0); NEUT % 57.2 % (50.0-75.0); NRBC % 0.2 % (0.0-0.0); RBC 4.82 Mil/uL (3.80-5.20); RED CELL DISTRIBUTION WIDTH 13.7 % (11.5-14.5); WHITE BLOOD COUNT 5.5 K/uL (4.8-10.8)
[2019-03-29 20:21] LABS: PARTIAL THROMBOPLASTIN TIME 32.2 Seconds (25.6-37.1)
[2019-03-29 20:25] LABS: ALB/GLOB RATIO 1.4 (1.0-2.1); ALBUMIN 4.4 g/dL (3.5-5.0); ALT/SGPT 26 U/L (9-52); AST/SGOT 23 U/L (14-36); BLOOD UREA NITROGEN 16 mg/dl (7-17); CALCIUM 9.1 mg/dL (8.4-10.2); GFR NON-AFRICAN AMERICAN > 60; LIPASE 217 U/L (23-300)
--- NOTE | 2019-03-29 23:13 | ED PDOC ---
- Laboratory Results Result Diagrams: 03/29/19 20:10 03/29/19 20:10 Lab Results: pO2 33 mm/Hg (30-55) 03/29/19 20:14 VBG pH 7.38 (7.32-7.43) 03/29/19 20:14 VBG pCO2 44 mmHg (40-60) 03/29/19 20:14 VBG HCO3 24.4 mmol/L 03/29/19 20:14 VBG Total CO2 27.4 mmol/L (22-28) 03/29/19 20:14 VBG O2 Sat (Calc) 69.4 % (40-65) H 03/29/19 20:14 VBG Base Excess 0.5 mmol/L (0.0-2.0) 03/29/19 20:14 VBG Potassium 4.0 mmol/L (3.6-5.2) 03/29/19 20:14 Sodium 134.0 mmol/L (132-148) 03/29/19 20:14 Chloride 99.0 mmol/L (98-107) 03/29/19 20:14 Glucose 319 mg/dL (65-105) H 03/29/19 20:14 Lactate 1.0 mmol/L (0.7-2.1) 03/29/19 20:14 FiO2 21.0 % 03/29/19 20:14 PT 10.9 Seconds (9.8-13.1) 03/29/19 20:10 INR 1.0 03/29/19 20:10 APTT 32.2 Seconds (25.6-37.1) 03/29/19 20:10 Total Bilirubin 0.4 mg/dl (0.2-1.3) 03/29/19 20:10 AST 23 U/L (14-36) 03/29/19 20:10 ALT 26 U/L (9-52) 03/29/19 20:10 Alkaline Phosphatase 109 U/L (38-126) 03/29/19 20:10 Total Protein 7.6 G/DL (6.3-8.2) 03/29/19 20:10 Albumin 4.4 g/dL (3.5-5.0) 03/29/19 20:10 Globulin 3.2 gm/dL (2.2-3.9) 03/29/19 20:10 Albumin/Globulin Ratio 1.4 (1.0-2.1) 03/29/19 20:10 Lipase 217 U/L (23-300) 03/29/19 20:10 - ECG O2 Sat by Pulse Oximetry: 98 (RA) Pulse Ox Interpretation: Normal Medical Decision Making Medical Decision Makin Patient care endorsed from Dr. Lee pending US and re-evaluation. 0200 Ultrasound of the abdomen, limited. Indication: Abdominal pain. Comparison: CT scan on 01/06/19. Findings: Liver is normal in size measuring 14 cm. Normal gallbladder wall thickness measuring 2 mm. Negative sonographic Barrera. Unremarkable pancreas. Unremarkable IVC. Unremarkable aorta. Nondilated common bile duct measuring 3 mm. Unremarkable right kidney. Impression: Unremarkable exam. Electronically signed on March 30, 2019 12:10:43 AM EDT by: Oscar Bruce M.D., Certified by [facility], [facility], Neuroradiology Labs present no clinically significant abnormalities. Patient is diagnosed with gastritis and stable for discharge Scribe Attestation: Documented by Aakash Lerma, acting as a scribe for Abilio Motta MD Provider Scribe Attestation: All medical record entries made by the Scribe were at my direction and personally dictated by me. I have reviewed the chart and agree that the record accurately reflects my personal performance of the history, physical exam, medical decision making, and the department course for this patient. I have also personally directed, reviewed, and agree with the discharge instructions and disposition. Disposition - Clinical Impression Clinical Impression: Gastritis, Abdominal pain - POA Present On Arrival: None - Disposition Referrals: [facility] [Outside] Scottie Bergman MD, PhD [Staff Provider] - Disposition: Routine/Home Disposition Time: 02:00 Condition: STABLE Prescriptions: Esomeprazole Magnesium [Nexium] 20 mg PO QAM #14 ecc Instructions: Gastritis Forms: [facility] (Pashto)
[2019-03-30 02:25] VITALS: BP 99/56; PULSE 75; RESP 18; TEMP 98.7
--- NOTE | 2019-03-30 18:20 | US ---
Date of service: 03/29/2019 HISTORY: ABD PAIN COMPARISON: None. TECHNIQUE: Sonographic evaluation of the right upper quadrant of the abdomen. FINDINGS: LIVER: Measures 14.0 cm in length. Normal echogenicity of the liver parenchyma. No mass. No intrahepatic bile duct dilatation. GALLBLADDER: Unremarkable. No gallstones. No evidence of sonographic Barrera sign COMMON BILE DUCT: Measures 3.0 mm. No stones. No dilatation. PANCREAS: Unremarkable as visualized. No mass. No ductal dilatation. RIGHT KIDNEY: Measures 10.8 x 4.8 x 5.1 cm in length. Normal echogenicity. No calculus, mass, or hydronephrosis. AORTA: No aneurysmal dilatation. IVC: Unremarkable. OTHER FINDINGS: None . IMPRESSION: No evidence of cholelithiasis. No acute findings.
[2019-03-31 15:57] VITALS: O2SAT 100
== END 2019-03-30 02:35 | disposition home or self-care (01) ==
LOC: H.ER 17:43
DX: K29.70 Gastritis, unspecified, without bleeding (principal); E11.9 Type 2 diabetes mellitus without complications; Z79.84 Long term (current) use of oral hypoglycemic drugs
CPT/HCPCS: 76705; 80053; 81025; 82803; 82948; 83615; 83690; 85025; 85610; 85730; 96360; 99284; J7030